=== PATIENT | female | born 1985 | race Caucasian/White ===

== ENCOUNTER 2022-10-05 16:38 | Outpatient (REF) | payer OTHER, SELFPAY ==
[2022-10-05 17:39] LABS: Influenza A PCR NEGATIVE (Negative); Influenza B PCR NEGATIVE (Negative); Resp Syncy Virus RNA Qual PCR NEGATIVE (Negative); SARS COV2 PCR INHOUSE NEGATIVE (Negative)
== END 2022-10-05 16:39 | disposition home or self-care (01) ==
LOC: HO.LNP 16:38
PROVIDERS: Visit Provider Nurse Practitioner Family
DX: Z20.822 Contact with and (suspected) exposure to COVID-19 (principal); R09.89 Other specified symptoms and signs involving the circulatory and respiratory systems
CPT/HCPCS: 0241U

== ENCOUNTER 2022-10-22 12:04 | Outpatient (REF) | payer OTHER, SELFPAY ==
--- NOTE | ~2022-10-22 | XR_ITS ---
EXAMINATION: XR LUMBOSACRAL SPINE CLINICAL INFORMATION: Lumbago with right sciatica. COMPARISON: None TECHNIQUE: Three views of the lumbosacral spine. FINDINGS: The vertebral bodies and posterior elements are unremarkable. The disc spaces appear preserved, and the vertebral alignment is normal. The paraspinal soft tissues appear normal. XR/XR lumbar spine 2-3V IMPRESSION: Unremarkable examination.
== END 2022-10-22 12:05 | disposition home or self-care (01) ==
LOC: HO.XRAY 12:04
PROVIDERS: PCP Internal Medicine; Visit Provider Nurse Practitioner Family
DX: M54.41 Lumbago with sciatica, right side (principal)
CPT/HCPCS: 72100

== ENCOUNTER 2023-07-21 09:19 | Outpatient (REF) | payer OTHER, SELFPAY ==
[2023-07-21 09:36] LABS: MANUAL DIFF FLAG NO
[2023-07-21 10:06] LABS: Basophils Percent Auto 0.6 % (0-2); Eosinophils Absolute Auto 0.2 X10*3/uL (0.0-0.4); Eosinophils Percent Auto 3.3 % (0-4); Hematocrit 40.8 % (37.0-47.0); Hemoglobin 12.9 g/dl (12.0-16.0); Imm Gran Abs Auto 0.01 X10*3/uL (0.00-0.03); Imm Gran Pct Auto 0.2 % (0.0-0.4); Lymphocytes Absolute Auto 1.9 X10*3/uL (1.2-4.9); Lymphocytes Percent Auto 38.7 % (20-40); Mean Corpuscular HGB Conc 31.6 g/dl (31.0-35.0); Mean Corpuscular Hemoglobin 25.4 pg (27.0-33.0); Mean Corpuscular Volume 80.3 fL (80.0-98.0); Mean Platelet Volume 10.1 fL (9.4-12.3); Monocytes Absolute Auto 0.4 X10*3/uL (0.1-1.2); Monocytes Percent Auto 8.2 % (2-11); Neutrophils Absolute Auto 2.4 x10*3/uL (2.0-8.3); Platelet Count 267 X10*3/uL (160-400); Red Blood Count 5.08 X10*6/uL (4.20-5.50); Red Cell Distribution Width 14.2 % (11.0-16.0); White Blood Count 4.9 X10*3/uL (4.8-10.8)
[2023-07-21 10:39] LABS: Alanine Aminotransferase 15 U/L (0-31); Albumin Level 4.1 g/dL (3.5-5.0); Alkaline Phosphatase 63 U/L (39-117); Anion Gap 12 (12-20); Aspartate Amino Transferase 15 U/L (5-31); Bilirubin Total 0.4 mg/dL (0.0-1.0); Blood Urea Nitrogen 14 mg/dL (9-16); Calcium 9.1 mg/dL (8.4-10.2); Carbon Dioxide 26 mmol/L (22-29); Chloride 105 mmol/L (96-108); Cholesterol 175 mg/dL (<200); Estimated Glomerular Filt Rate > 60; Glucose Random 83 mg/dL (60-115); HDL Cholesterol 45 mg/dL (>40); LDL Cholesterol Calculated 115 mg/dL (<100); Potassium 3.8 mmol/L (3.3-5.1); Sodium 139 mmol/L (135-145); Total Protein 7.7 g/dL (6.5-8.0); Triglycerides 77 mg/dL (<150)
[2023-07-21 10:55] LABS: Thyroid Stimulating Hormone 0.89 uIU/mL (0.32-4.0); Vitamin D 25-OH Total 48.3 ng/mL (>30)
[2023-07-21 11:12] LABS: Folate 10.9 ng/mL (> or = 4.0); Vitamin B12 871 pg/mL (200-900)
[2023-07-23 21:24] LABS: TS Negative Control Passed; TS Panel A 0; TS Panel B 0; TS Positive Control Passed; TSpotTB Negative (Negative)
== END 2023-07-21 09:20 | disposition home or self-care (01) ==
LOC: HO.LAB 09:19
PROVIDERS: PCP Internal Medicine; Visit Provider Internal Medicine
DX: Z00.00 Encounter for general adult medical examination without abnormal findings (principal); E66.3 Overweight; E78.00 Pure hypercholesterolemia, unspecified; Z11.1 Encounter for screening for respiratory tuberculosis
CPT/HCPCS: 36415; 80053; 80061; 82306; 82607; 82746; 84439; 84443; 85025; 86481

== ENCOUNTER 2023-07-26 07:54 | Outpatient (AMB) | payer OTHER, SELFPAY ==
--- NOTE | 2023-07-26 08:20 | AM.OFFVISNUR ---
Intake Intake Visit Reasons: tetanus and flu vaccines Allergies crab Adverse Reaction (Intermediate, Uncoded 01/27/23 16:43) throat irritation Office Procedures Flu Questionnaire Does the patient have a severe egg allergy?: No Does the patient have severe life threatening allergies?: No Does the patient have a fever or illness today?: No Has the patient ever had Guillain-[place] Syndrome?: No Has the patient ever had any past reaction to a flu shot?: No Immunizations flu vacc [id number] 6mos up(PF) 60 mcg(15 mcgx4)/0.5 mL IM syringe Performing Provider: Ari Singh MD Performing Location: [facility] Administered by: Altagracia Hernandez RN on 07/26/23 08:20 Dose Route Admin Location Dispensed Lot Number Expiration Date [employer] 0.5 mL IM Right Deltoid 0.5 mL [id number] 03/11/24 42515-368-01 [employer]LAXOSMITHK[employer] VIS Given Date VIS Provided VIS Publication Date 07/26/23 Single Vaccine 21 Eligibility Eligibility Date Funding Source Not VFC Eligible 07/26/23 Private Boostrix Tdap 2.5 Lf unit-8 mcg-5 Lf/0.5 mL intramuscular syringe Performing Provider: Ari Singh MD Performing Location: [facility] Administered by: Altagracia Hernandez RN on 07/26/23 08:20 Dose Route Admin Location Dispensed Lot Number Expiration Date [employer] Operator 0.5 mL IM Left Deltoid 0.5 mL [id number] 08/17/25 46175-830-70 [employer]LAXOSMITHK[employer] VIS Given Date VIS Provided VIS Publication Date 07/26/23 Single Vaccine 21 Eligibility Eligibility Date Funding Source Not VFC Eligible 07/26/23 Private Coding Assessment & Plan Assessment & Plan Orders: Orders TDaP Immunization Today Z23 - Encounter for immunization Influenza [id number] Immunization Today Z23 - Encounter for immunization
== END 2023-07-26 08:26 | disposition home or self-care (01) ==
PROVIDERS: PCP Internal Medicine; Visit Provider Internal Medicine
DX: Z23 Encounter for immunization (principal)
CPT/HCPCS: 90471; 90472; 90686; 90715

== ENCOUNTER 2023-12-12 15:41 | Outpatient (AMB) | payer OTHER, SELFPAY ==
[2023-12-12 15:45] VITALS: BP 110/64; PULSE 89; TEMP 37.2; O2SAT 98
--- NOTE | 2023-12-12 15:45 | MHC.OFFWIV ---
Intake Vital Signs 12/12/23 15:45 Height 5 ft 2 in BP 110/64 Blood Pressure Location Lt brachial Position Sitting Pulse 89 Pulse Source Pulse Oximeter Temp 98.9 F Temp Source Oral Pulse Oximetry (%) 98 Oxygen Delivery Method Room Air Intake Visit Reasons: EP sore throat ear/headache Intake Note: pt is here for sore throat and ear pain with headache Patient Tobacco Use Status: Never used Tobacco Allergies crab Adverse Reaction (Intermediate, Uncoded 12/12/23 15:45) throat irritation Do you need a note to return to daycare/school/sports/work: No HPI HPI Comments History of Present Illness Details 38 y/o female patient who presents to walk in clinic with c/o headaches, sore-throat, fevers and body aches since yesterday. Son tested positive for COVID-19 Infection this morning. [facility] Medical History (Updated 01/27/23 @ 16:44 by Ari Singh MD) Right-sided low back pain with sciatica Surgical History History of tubal ligation Family History (Updated 01/27/23 @ 16:01 by Theresa Anderson CMA) Father No problems noted. Mother Hypertension Diabetes Maternal Grandmother Diabetes Hypertension Social History Housing: Apartment Alcohol intake: never Patient Tobacco Use Status: Never used Tobacco e-Cigarette/Vaping Use: Never Used Second Hand Smoke Exposure: No service: No Current occupational status: employed Current occupational exposures/hazards: No Cognitive needs: No Hearing needs: No Vision needs: Yes Review of Systems Const All systems reviewed & are unremarkable except as noted in HPI and below Physical Exam Vital Signs: Last Vital Signs Temp 98.9 F 12/12/23 15:45 Pulse 89 12/12/23 15:45 BP 110/64 12/12/23 15:45 Pulse Ox 98 12/12/23 15:45 Oxygen Delivery Method Room Air 12/12/23 15:45 Const General: comfortable and no acute distress Orientation/consciousness: patient oriented x3 HEENT Head: Yes normocephalic Ears: external ears normal, TM's normal bilaterally and TM abnormal with fluid behind the TM bilateral General nose exam: Abnormal mucous membranes and turbinates present boggy and erythematous Mouth: moist mucous membranes Throat: Yes posterior oropharynx normal Neuro General: patient oriented x3 and gait normal Psych Speech and movement: Normal speech and movement present Assessment & Plan Assessment & Plan (1) COVID-19: Code(s): U07.1 - COVID-19 Plan: - Rest and hydrate well with warm fluids - Acetaminophen for pain relief. - Paxlovid Medications: New nirmatrelvir-ritonavir 300 mg (150 mg x 2)-100 mg (Paxlovid) take TWO 150 mg tablets of nirmatrelvir with ONE 100 mg tablet of ritonavir twice daily for 5 days PO 30 ea 0RF COVID INFECTION U07.1 - COVID-19 acetaminophen 1,000 mg (2 x 500 mg) PO Q6H PRN 30 caps 0RF pain, moderate U07.1 - COVID-19 Coding Level of Care Code Est Pt Level 3 (01840) Diagnoses COVID-19 U07.1 Time Spent (min) 15
== END 2023-12-12 16:44 | disposition home or self-care (01) ==
PROVIDERS: PCP Internal Medicine; Visit Provider Nurse Practitioner Family
DX: U07.1 COVID-19 (principal)
CPT/HCPCS: 99213

== ENCOUNTER 2024-04-02 09:27 | Outpatient (AMB) | payer OTHER, MEDICAID, SELFPAY ==
--- NOTE | 2024-04-02 10:17 | MHC.OFFWIV ---
Intake Vital Signs 04/02/24 10:18 Height 5 ft 2 in Weight 150 lb BMI 27.4 BP 110/70 Blood Pressure Location Lt brachial Position Sitting Pulse 66 Pulse Source Pulse Oximeter Temp 98.3 F Temp Source Oral Pulse Oximetry (%) 99 Oxygen Delivery Method Room Air Intake Visit Reasons: EP headache, ? High BP, dizzy Intake Note: pt here c/o headache and dizziness, ? Elevated BP. Started 3 days ago Patient Tobacco Use Status: Never used Tobacco Allergies crab Adverse Reaction (Intermediate, Uncoded 04/02/24 10:17) throat irritation Do you need a note to return to daycare/school/sports/work: No HPI EP headache, ? High BP, dizzy HPI Details This note is constructed using voice recognition software. While every effort has been made to ensure accuracy, property claims adjuster errors may have been included. The patient is a 38 year old female who presents to the clinic today with headache and dizziness with concern for elevated BP. She notes that on Tuesday she started with a unilateral right-sided headache, and then developed a mild dizziness. She was seen in the emergency room, which noted her to have a blood pressure 160 systolically and advised her to follow up with PCP should this recur again. Additionally they did an EKG and told her that the results were normal. Her workup ended with no additional treatment plan, and she was advised to monitor for symptoms returned. She notes that though the headache portion has nearly resolved she continues to have tenderness along the scalp on the right side of her head, without any new symptoms. She continues to have the mild amount of dizziness, and this does seem to be worse if she is moving around and walking around. She does not have light sensitivity but has some mild sound sensitivity. She denies confusion, difficulty speaking or walking. [facility] Medical History (Updated 01/27/23 @ 16:44 by Ari Singh MD) Right-sided low back pain with sciatica Surgical History History of tubal ligation Family History (Updated 01/27/23 @ 16:01 by Theresa Anderson CMA) Father No problems noted. Mother Hypertension Diabetes Maternal Grandmother Diabetes Hypertension Social History Housing: Apartment Alcohol intake: never Patient Tobacco Use Status: Never used Tobacco e-Cigarette/Vaping Use: Never Used Second Hand Smoke Exposure: No service: No Current occupational status: employed Current occupational exposures/hazards: No Cognitive needs: No Hearing needs: No Vision needs: Yes Review of Systems Const All systems reviewed & are unremarkable except as noted in HPI and below Physical Exam Vital Signs: Last Vital Signs Temp 98.3 F 04/02/24 10:18 Pulse 66 04/02/24 10:18 BP 110/70 04/02/24 10:18 Pulse Ox 99 04/02/24 10:18 Oxygen Delivery Method Room Air 04/02/24 10:18 BMI result Body Mass Index 27.4 Const General: cooperative, healthy appearing, comfortable, no acute distress and alert Orientation/consciousness: patient oriented x3 Limitations: no limitations HEENT Head: Yes normal to inspection and Yes normocephalic Ears: hearing grossly normal bilaterally General nose exam: Normal external nose present Face and sinus: Yes normal facial exam and Yes sinuses nontender Mouth: Normal oral and palatal mucosa present and tongue normal Teeth and gingiva: dentition normal Throat: Yes posterior oropharynx normal Eyes General: appearance normal, both eyes and all related structures Neck Neck: Yes normal visual inspection, Yes full ROM and Yes no lymphadenopathy Resp Effort & Inspection: normal respiratory effort and able to speak in complete sentences Auscultation: clear to auscultation bilaterally Cardio Jugular venous distension: no JVD Palpation: normal PMI Rate: regular rate Heart sounds: S1 normal heart sound present, S2 normal heart sound present, no click, no gallops, no murmurs and no rubs Skin General skin exam: no rashes or lesions noted, elasticity normal and turgor normal Neuro General: patient oriented x3 Cranial nerves: Yes CN's II-XII intact bilaterally and Yes Facial sensation intact/muscles of mastication intact Extrem General: Yes normal to inspection, Yes full ROM, Yes capillary refill normal and Yes normal exam except as noted Psych Appearance: grossly normal Mental Status: mental status grossly normal Speech and movement: Normal speech and movement present Affect: normal affect Assessment & Plan Assessment & Plan (1) Migraine headache without aura: Code(s): G43.009 - Migraine without aura, not intractable, without status migrainosus Qualifiers: Status migrainosus presence: with status migrainosus Intractability: not intractable Qualified Code(s): G43.001 - Migraine without aura, not intractable, with status migrainosus Plan: History and physical exam consistent with likely migraine status given prolonged, greater than 4 hours, unilateral symptoms and phonophobia. Advised [id number] at-home treatment methods, including home measures such as dark room, resting. Ice pack. We will try a short prednisone burst to help reduce symptoms with anti-inflammatory effect. Advised patient to start headache journal, and follow up with PCP with these results. Given that she is absent of any red flag symptoms, at home treatment appropriate for this patient. Reviewed symptoms that would involve need for emergent treatment such as sudden worsened headache of her life, confusion, and resolving nausea or vomiting. Plan See above for full details and plan. She did not have elevated blood pressure in office today, advised patient to obtain blood pressure cuff for at home monitoring, which could be helpful to determine if there are any particular patterns associated with this. Advised low-sodium diet to help with any potential contribution to elevated emergency room readings. Medications: New prednisone 40 mg (2 x 20 mg) PO DAILY 3 days 6 tabs 0RF Coding Level of Care Code Est Pt Level 4 (42150) Diagnoses Migraine without aura and with status migrainosus, not intractable G43.001 Status migrainosus presence: with status migrainosus Intractability: not intractable
[2024-04-02 10:18] VITALS: BP 110/70; PULSE 66; TEMP 36.8; O2SAT 99; BMI 27.4
== END 2024-04-02 11:07 | disposition home or self-care (01) ==
PROVIDERS: PCP Internal Medicine; Visit Provider Registered Nurse
DX: G43.001 Migraine without aura, not intractable, with status migrainosus (principal)
CPT/HCPCS: 99214

== ENCOUNTER 2024-04-11 13:59 | Outpatient (AMB) | payer OTHER, SELFPAY ==
[2024-04-11 14:02] VITALS: BP 108/70; PULSE 68; O2SAT 99; BMI 28.0
--- NOTE | 2024-04-11 14:02 | A.OFFPC_ITS ---
Vital Signs 04/11/24 14:02 Height 5 ft 2 in Weight 153 lb 0.2 oz BMI 28.0 BP 108/70 Blood Pressure Location Lt brachial Position Sitting Pulse 68 Pulse Source Pulse Oximeter Pulse Oximetry (%) 99 Oxygen Delivery Method Room Air Intake Visit Reasons: Kendrick Guerreir 03/30 Hypertension, headaches Intake Note: Patient is here to follow-up after a visit the emergency department at [facility] on 03/30/2024 Personnel Clerks Supervisor Required: No Allergies crab Adverse Reaction (Intermediate, Uncoded 04/11/24 14:03) throat irritation Medication List - Last Reconciled 04/11/24 by Katherin Arias PA-C acetaminophen 1,000 mg (2 x 500 mg) PO Q6H PRN cholecalciferol (vitamin D3) 25 mcg PO DAILY cyanocobalamin (vitamin B-12) (Vitamin B-12) 1 mL PO DAILY epinephrine (EpiPen) 0.3 mg (0.3 mL) IM Q4H PRN Tobacco use date assessed: 04/11/24 Dental Screening Dental Screen Date: 04/11/24 HPI Kendrick Guerrier 03/30 Hypertension, headaches HPI Details 38-year-old female with no relevant past medical history last seen by Dr. Singh 01/2023 coming in for hospital follow up.? In review of the notes, patient was seen at [facility] walk-in clinic 04/02/2024 for dizziness and elevated blood pressure.? Patient was diagnosed with migraine treated with prednisone. Seen in [facility] 04/04/2024 with elevated BP with systolic in the 60s and headache with dizziness. EKG was normal. Patient states for the last 2 weeks she has been having daily migraines with nausea, dizziness, light sensitivity and sensitivity to loud noises. She has tried Tylenol and prednisone with no relief. She has no history of migraines in the past. She states the headaches typically last anywhere between 4-6 hours before subsiding. She can not identify any triggers. [facility] Medical History Right-sided low back pain with sciatica Surgical History History of tubal ligation Family History Father No problems noted. Mother Hypertension Diabetes Maternal Grandmother Diabetes Hypertension Social History Housing: Apartment Alcohol intake: never Patient Tobacco Use Status: Never used Tobacco e-Cigarette/Vaping Use: Never Used Second Hand Smoke Exposure: No service: No Current occupational status: employed Current occupational exposures/hazards: No Cognitive needs: No Hearing needs: No Vision needs: Yes Questionnaire Thrive Questionnaire Date Thrive assessed: 12/10/22 AUDIT C Alcohol Use Questionnaire (AUDIT-C) 1. How often do you have a drink containing alcohol?: Never 3. How often do you have six or more drinks on one occasion?: Never Total Score: 0 ABDI-7 AMB Questionnaire ABDI-7 Date ABDI - 7 assessed: 10/22/22 Source: Developed by Drs. Dann Wagner, Diane Mahan, Nikko Wilson and colleagues, with an educational dagmar from [employer]. Review of Systems Const Denies body aches, Denies chills, Denies fever(s), Reports headache(s) and Denies poor appetite Eyes Details: No visual changes however sensitivity to light ENT Details: Phonophobia Denies dysphagia, Denies dizziness and Reports headache(s) Card Denies chest pain, Denies syncope, Denies edema, Denies irregular heart rhythm, Reports lightheadedness and Denies dyspnea Resp Denies cough and Denies dyspnea GI Denies abdominal pain, Denies dysphagia and Reports nausea Reports no additional complaints Musc Details: Chronic low back pain Denies abnormal gait Skin/Breast Reports system reviewed and no additional complaints, except as documented Neuro Denies abnormal gait, Denies dizziness, Denies syncope and Reports headache(s) Psych Reports no additional complaints Physical exam (Primary Care) Vital Signs: Last Vital Signs Pulse 68 04/11/24 14:02 BP 108/70 04/11/24 14:02 Pulse Ox 99 04/11/24 14:02 Oxygen Delivery Method Room Air 04/11/24 14:02 BMI result Body Mass Index 28.0 Tobacco/Smoking Status: Tobacco use Status Tobacco use date assessed 04/11/24 04/11/24 14:04 Patient Tobacco Use Status Never used Tobacco 04/11/24 14:04 e-Cigarette/Vaping Use Never Used 04/11/24 14:04 Thrive Assessment: Date of Thrive Assessment Date Thrive assessed 12/10/22 04/11/24 14:04 Const General: cooperative, healthy appearing, comfortable and no acute distress Orientation/consciousness: patient oriented x3 HENMT Head: Yes normocephalic Ears: hearing grossly normal bilaterally General nose exam: Normal external nose present Eyes General: appearance normal, both eyes and all related structures Conjunctivae: conjunctivae normal Pupils: Equal, round and reactive pupils present Neck Neck: Yes full ROM and Yes no lymphadenopathy Resp Effort & Inspection: normal respiratory effort Auscultation: clear to auscultation bilaterally, no crackles, no rales, no rhonchi and no wheezes Cardio Rate: regular rate Rhythm: regular rhythm Skin General skin exam: no rashes or lesions noted Neuro General: patient oriented x3 Cranial nerves: Yes Equal, round and reactive pupils present, Yes Bilaterally intact EOM present, Yes Normal facial strength present and Yes Ability to bilaterally elevate shoulders present Gait exam (Neuro): Normal gait present Extrem General: Yes normal to inspection, Yes full ROM and No edema Psych Affect: normal affect Attitude: cooperative Insight: Good insight present (Psych) Judgement: Good judgement present (Psych) Assessment and Plan Assessment & Plan (1) Migraine: Code(s): G43.909 - Migraine, unspecified, not intractable, without status migrainosus Plan: Patient has no previous history of migraines and has been having 2 weeks of daily unilateral headaches with nausea, light sensitivity, lightheadedness, and sensitivity to sound. Her blood pressure was found to be elevated at [facility] however her blood pressures have been consistently low normal in the clinic. Recommended taking blood pressure at home daily with [id number] blood pressure cuff. We will trial Excedrin as patient has not tried this yet if this does not improve we can consider adding sumatriptan. Antiemetic offered and declined at this visit. Referral to neurology placed at patient request. Follow up in 1 month. Plan This note was constructed using voice recognition software. While every effort has been made to ensure accuracy and operations specialists, still areas may have been included sometimes these areas may affect the content or meeting of the given symptoms. Total time spent caring for the patient today was 35 minutes. This includes time spent before the visit reviewing the chart, time spent during the visit, and time spent after the visit and documentation. Orders: Referrals Neurology Referral G43.909 - Migraine, unspecified, not intractable, without status migrainosus Medications: New ryzyruo-qxqedmuaxduha-ejpoelod 250-250-65 mg (Excedrin Extra Strength) 1 tab PO Q4-6H PRN 20 tabs 0RF pain Coding Level of Care Code Est Pt Level 4 (50747) Diagnoses Migraine G43.909
== END 2024-04-11 14:31 | disposition home or self-care (01) ==
PROVIDERS: PCP Internal Medicine
DX: G43.909 Migraine, unspecified, not intractable, without status migrainosus (principal)
CPT/HCPCS: 99214

== ENCOUNTER 2024-06-19 11:01 | Outpatient (AMB) | payer OTHER, SELFPAY ==
--- NOTE | 2024-06-19 11:18 | A.OFFPC_ITS ---
Vital Signs 06/19/24 11:19 Height 5 ft 2 in Weight 156 lb BMI 28.5 BP 110/60 Blood Pressure Location Lt brachial Position Sitting Pulse 74 Pulse Source Pulse Oximeter Pulse Oximetry (%) 96 Oxygen Delivery Method Room Air Intake Visit Reasons: Annual PE Intake Note: Patient is here today for a physical. 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 Driver: Not Required per policy Accompanied by: Self / Same As Patient Allergies crab Adverse Reaction (Intermediate, Uncoded 06/19/24 11:19) throat irritation Medication List - Last Reconciled 06/19/24 by Ari Singh MD acetaminophen 1,000 mg (2 x 500 mg) PO Q6H PRN dxcjtsu-weiijurwelxvr-znirwqvx 250-250-65 mg (Excedrin Extra Strength) 1 tab PO Q4-6H PRN cholecalciferol (vitamin D3) 25 mcg PO DAILY epinephrine (EpiPen) 0.3 mg (0.3 mL) IM Q4H PRN pyridoxine (vitamin B6) 10 mg PO DAILY Tobacco use date assessed: 06/19/24 Dental Screening Dental Screen Date: 04/11/24 HPI Annual PE HPI Details 38-year-old overweight female coming in for physical exam history of migraine PFSH Medical History (Updated 06/19/24 @ 11:54 by Ari Singh MD) Right-sided low back pain with sciatica Headache Surgical History History of tubal ligation Family History Father No problems noted. Mother Hypertension Diabetes Maternal Grandmother Diabetes Hypertension Social History Housing: Apartment Alcohol intake: never Patient Tobacco Use Status: Never used Tobacco e-Cigarette/Vaping Use: Never Used Second Hand Smoke Exposure: No service: No Current occupational status: employed Current occupational exposures/hazards: No Cognitive needs: No Hearing needs: No Vision needs: Yes Questionnaire PHQ-9 Over the last 2 weeks, how often have you been bothered by any of the following problems? 1. Little interest or pleasure in doing things: not at all 2. Feeling down, depressed, or hopeless: not at all 3. Trouble falling or staying asleep, or sleeping too much: not at all 4. Feeling tired or having little energy: not at all 5. Poor appetite or overeating: not at all 6. Feeling bad about yourself - or that you are a failure or have let yourself or your family down: not at all 7. Trouble concentrating on things, such as reading the newspaper or watching television: not at all 8. Moving or speaking so slowly that other people could have noticed. Or the opposite - being so fidgety or restless that you have been moving around a lot more than usual: not at all 9. Thoughts that you would be better off or of hurting yourself in some way: not at all Total score: 0 Depression Screening Interpretation: Negative Depression Screening Done: Yes Source: Developed by Drs. Dann Wagner, Diane Mahan, Nikko Wilson and colleagues, with an educational dagmar from [employer]. Thrive Questionnaire Date Thrive assessed: 06/19/24 I am a: Patient What is your living situation today?: I have a steady place to live Within the past 12 months, did the food you bought not last and you didn't have the money to get more?: Never true Within the past 12 months, did you worry whether your food would run out before you got money to buy more?: Never true Do you have trouble paying for medicines?: No Do you have trouble getting transportation to medical appointments?: No Do you have trouble paying your heating and electricity bill?: No Do you have trouble taking care of your child, family member or friend?: No Do you have trouble with day-to-day activities such as bathing, preparing meals, shopping, managing finances, etc.?: No Are you currently unemployed and looking for a job?: No Are you interested in more education?: Yes Please select the resources that you would like help with: Job search/training Currently or been in a relationship where the following occur: No concerns reported THRIVE Score: 0 AUDIT C Alcohol Use Questionnaire (AUDIT-C) 1. How often do you have a drink containing alcohol?: Never Total Score: 0 ABDI-7 AMB Questionnaire ABDI-7 Date ABDI - 7 assessed: 06/19/24 Feeling nervous, anxious, or on edge: 0 = Not at all Not being able to stop or control worryin = Not at all Worrying too much about different things: 0 = Not at all Trouble relaxin = Not at all Being so restless that it is hard to sit still: 0 = Not at all Becoming easily annoyed or irritable: 0 = Not at all Feeling afraid as if something awful might happen: 0 = Not at all Total ABDI-7 score (0-4 normal; 5-9 mild; 10-14 moderate; 15-21 severe): 0 Source: Developed by Drs. Dann Wagner, Diane Mahan, Nikko Wilson and colleagues, with an educational dagmar from [employer]. Review of Systems Const Denies poor appetite and Denies weakness Eyes Denies no additional complaints ENT Reports Normal hearing present, Denies dizziness, Denies nasal congestion, Denies tinnitus and Denies sore throat Card Denies chest pain, Denies syncope, Denies rapid heart rate and Denies dyspnea Resp Denies cough and Denies dyspnea GI Denies change in stool character, Reports constipation, Denies diarrhea, Denies nausea and Denies vomiting Denies urinary frequency, Denies difficulty voiding and Denies dysuria Neuro Reports Normal hearing present, Denies confusion, Denies dizziness, Denies syncope and Denies weakness Psych Denies confusion Physical exam (Primary Care) Vital Signs: Last Vital Signs Pulse 74 06/19/24 11:19 BP 110/60 06/19/24 11:19 Pulse Ox 96 06/19/24 11:19 Oxygen Delivery Method Room Air 06/19/24 11:19 BMI result Body Mass Index 28.5 Tobacco/Smoking Status: Tobacco use Status Tobacco use date assessed 06/19/24 06/19/24 11:23 Patient Tobacco Use Status Never used Tobacco 06/19/24 11:23 e-Cigarette/Vaping Use Never Used 06/19/24 11:23 PHQ-9: PHQ-9 Score PHQ-9: Total score 0 06/19/24 11:23 Depression Screening Interpretation: Negative Thrive Assessment: Date of Thrive Assessment Date Thrive assessed 06/19/24 06/19/24 11:23 Currently or been in a relationship where the following occur: No concerns reported Const General: No confusion Orientation/consciousness: No confusion HENMT Head: Yes normocephalic Ears: external ears normal and TM's normal bilaterally Face and sinus: Yes normal facial exam Mouth: moist mucous membranes Throat: Yes tonsils normal Eyes Conjunctivae: conjunctivae normal Pupils: Equal, round and reactive pupils present and Pupil accommodation reflex normal Direct Ophthalmoscopy: normal light reflex Neck Neck: No lymphadenopathy Thyroid: Thyroid normal Chest Chest palpation & inspection: normal inspection of the chest Resp Effort & Inspection: normal respiratory effort and no audible wheezes Auscultation: clear to auscultation bilaterally, no crackles, no wheezes and lung sounds not diminished Cardio Rate: regular rate Rhythm: regular rhythm Peripheral pulses: radial pulses present and dorsalis pedis present GI Palpation (GI): no masses Auscultation: normal bowel sounds and normoactive bowel sounds Rectal Exam - Female: deferred Skin General skin exam: no rashes or lesions noted Rashes: no rashes Neuro General: No confusion Cranial nerves: Yes Equal, round and reactive pupils present and Yes Normal hearing present Cognition (Neuro): normal cognition Gait exam (Neuro): Normal gait present Motor exam (neuro): 5/5 motor strength present throughout Deep tendon reflexes (DTR's): Right brachioradialis reflex intensity grade: 2+, Left brachioradialis reflex intensity grade: 2+, Right patellar reflex intensity grade: 2+ and Left patellar reflex intensity grade: 2+ Extrem General: No edema Coding Level of Care Code Est Pt Prev Care 40-64y(85279) Diagnoses Annual physical exam Z00.00 Migraine G43.909 Overweight (BMI 25.0-29.9) E66.3 Breast cancer screening by mammogram Assessment & Plan Assessment & Plan (1) Annual physical exam: Code(s): Z00.00 - Encounter for general adult medical examination without abnormal findings Category: Medical Plan: Patient is advised to eat healthy, keep well hydrated, keep active and have adequate sleep. (2) Migraine: Code(s): G43.909 - Migraine, unspecified, not intractable, without status migrainosus Category: Medical Plan: Keep well hydrated have enough sleep. (3) Overweight (BMI 25.0-29.9): Code(s): E66.3 - Overweight Category: Medical Plan: Diet and exercise (4) Breast cancer screening by mammogram: Code(s): Z12. - Encounter for screening mammogram for malignant neoplasm of breast Category: Medical Plan: Patient is reminded about mammogram Orders: Orders MM tomosynthesis screening BI Today Z12.31 - Encounter for screening mammogram for malignant neoplasm of breast
[2024-06-19 11:19] VITALS: BP 110/60; PULSE 74; O2SAT 96; BMI 28.5
== END 2024-06-19 12:02 | disposition home or self-care (01) ==
PROVIDERS: PCP Internal Medicine; Visit Provider Internal Medicine
DX: Z00.00 Encounter for general adult medical examination without abnormal findings (principal); G43.909 Migraine, unspecified, not intractable, without status migrainosus; E66.3 Overweight; Z12.31 Encounter for screening mammogram for malignant neoplasm of breast

== ENCOUNTER → 2024-06-19 11:01 | Outpatient (BNVA) | payer OTHER, SELFPAY | PROVIDERS: PCP Internal Medicine; Visit Provider Internal Medicine | DX: Z00.01 Encounter for general adult medical examination with abnormal findings (principal); G43.909 Migraine, unspecified, not intractable, without status migrainosus; E66.3 Overweight; Z68.28 Body mass index [BMI] 28.0-28.9, adult; Z71.3 Dietary counseling and surveillance | CPT/HCPCS: 96127; 99396 ==

== ENCOUNTER 2024-08-25 08:59 | Outpatient (REF) | payer OTHER, SELFPAY | END 2024-08-25 09:00 | disposition home or self-care (01) | LOC: HO.MAMMO 08:59 | PROVIDERS: PCP Internal Medicine; Visit Provider Internal Medicine | DX: Z12.31 Encounter for screening mammogram for malignant neoplasm of breast (principal) | CPT/HCPCS: 77063; 77067 ==

== ENCOUNTER → 2024-08-25 09:15 | Outpatient (BNV) | payer OTHER, SELFPAY | PROVIDERS: PCP Internal Medicine; Visit Provider Internal Medicine | DX: Z12.31 Encounter for screening mammogram for malignant neoplasm of breast (principal) | CPT/HCPCS: 77063; 77067 ==

== ENCOUNTER 2025-04-10 12:44 | Outpatient (AMB) | payer OTHER, SELFPAY ==
--- OUTSIDE RECORDS SUMMARY | 2025-04-10 13:16 | XMS_ITS | Clinical Summary ---
Author Organization [facility] Address [address] [address] Phone Care Team Providers Care Wire Repairer Name Role Phone Pcp, Unknown Primary Care Provider Unavailabl e Immunizations Immunization Administration Dates Next Due COVID-19 (Pre-07/04) Pfizer Vaccine, mRNA, PF 09/22/2021,11/16/2020,10/26/2020 Hepatitis B Adult 04/22/2003,06/09/1999,05/27/19 97 Influenza, Unspecified Formulation 07/26/2023, MMR 06/02/1990,03/01/1985 Tdap 07/26/2023,02/20/2004 Social History Tobacco Use Types Packs/Day Years Used Date Smoking Tobacco: Never Assessed Education Answer Date Recorded Are you interested in more education? Not on wesley e 03/31/2024 Are you concerned about learning? Not on file 03/31/2024 No 03/31/2024 No 03/31/2024 Digital Access Answer Date Recorded No 03/31/2024 No 03/31/2024 Reliable internet access at home? Not on file 03/31/2024 Device with a working camera? Not on file Comments Unknown Sex and Gender Information Value Date Recorded Sex Assigned at Not on file Legal Sex Female 9:44 AM EST Gender Identity Not on file Sexual Orientation Not on file Plan of Treatment Health Maintenance Due Date Last Done Comments DEPRESSION SCREENING 1995 SMOKING Hx and SMOKELESS TOBACCO SCREENING 1996 HEPATITIS C SCREENING 2001 HIV ONE-TIME SCREENING (18-6 5 YEARS) 2001 PAP SMEAR 2004 MAMMOGRAM 2023 COVID-19 VACCINE (2023-2 5 season) 2024 09/22/2021, 11/16/2020, 10/26/2020 Adult Td,Tdap Booster 07/26/2033 07/26/2023 , 02/20/2004 HEPATITIS A VACCINES Aged Out No long er eligible based on patient's age to complete this topic HIB VACCINES Aged Out No longer eligi ble based on patient's age to complete this topic MENINGOCOCCAL VACCINES (ACWY) Aged Out No longer eligible based on patient's age to complete this topic MENINGOCOCCAL VACCINES (B) Aged Out N o longer eligible based on patient's age to complete this topic PNEUMOCOCCAL VACCINES (0-49 years) Aged Out No longer eligible b ased on patient's age to complete this topic Medical Devices Not on file Insurance [facility] EMPL[employer]YEES [employer] [facility] [employer] [employer] [employer] [place] [employer] Care Teams Wire Repairer Relationship Specialty Start Date End Date Pcp, Unknown PCP - General 03/30/24 Additional Source Comments The information contained in this document represents components of the legal health record. It is not the complete legal health record.[facility]
[2025-04-10 13:35] VITALS: BP 108/76; PULSE 72; TEMP 36.9; O2SAT 98; BMI 29.4
--- NOTE | 2025-04-10 13:35 | AM.OFFWIN_ITS ---
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 Patient states this morning she was walking from the break room to the elevator when she felt tingling in the tips of her fingers bilaterally and her toes bilaterally. Patient states that she returned to the break room, drank some water and took a break for approximately 5 minutes; by then the tingling had resolved and has not yet recurred. Patient states this has never occurred before. She denies taking any new medications, supplements or herbal agents. Additionally, she denies having any lightheadedness, headaches, visual changes, neck pain or unsteadiness when ambulating. Patient ate breakfast before going to work today and states that she has stayed well hydrated in the current heat wave. Patient is requesting a work note for tomorrow. [facility] Medical History (Updated 04/10/25 @ 14:51 by Janna Plaza PA-C) Right-sided low back pain with sciatica Headache Surgical History History of tubal ligation Family History Father No problems noted. Mother Hypertension Diabetes Maternal Grandmother Diabetes Hypertension Social History Housing: Apartment Alcohol intake: never Patient Tobacco Use Status: Never used Tobacco e-Cigarette/Vaping Use: Never Used Second Hand Smoke Exposure: No Patient : No service: No Current occupational status: employed Current occupational exposures/hazards: No Cognitive needs: No Hearing needs: No Vision needs: Yes Female Reproductive History Menstrual Date of last menstrual period: 04/07/25 Review of Systems Const All systems reviewed & are unremarkable except as noted in HPI and below Reports no additional complaints, Denies chills, Denies daytime sleepiness, Denies fatigue and Denies fever(s) Eyes Reports no additional complaints and Denies change in vision ENT Reports no additional complaints Card Reports no additional complaints Resp Reports no additional complaints GI Reports no additional complaints Reports no additional complaints Musc Reports no additional complaints, Denies numbness and Reports tingling (fingers and toes; transient) Skin/Breast Reports system reviewed and no additional complaints, except as documented Neuro Reports Abnormal speech present, Denies numbness, Denies radicular pain and Reports tingling (fingers and toes; transient) Psych Reports no additional complaints, Denies anxiety and Denies difficulty concentrating Endo Reports no additional complaints and Denies fatigue Darin/Lymph Reports no additional complaints Aller/Immun Reports no additional complaints Physical Exam Vital Signs: Last Vital Signs Temp 98.4 F 04/10/25 13:35 Pulse 72 04/10/25 13:35 BP 108/76 04/10/25 13:35 Pulse Ox 98 04/10/25 13:35 Oxygen Delivery Method Room Air 04/10/25 13:35 BMI result Body Mass Index 29.4 Const General: cooperative, healthy appearing, comfortable, no acute distress, well developed, alert, awake and Physically active Nutritional Appearance: average body habitus Orientation/consciousness: patient oriented x3 Limitations: no limitations HEENT Head: Yes normal to inspection and Yes normocephalic Ears: hearing grossly normal bilaterally, external ears normal, TM's normal bilaterally and EAC's normal Eyes General: appearance normal, both eyes and all related structures Resp Effort & Inspection: normal respiratory effort, able to speak in complete sentences, no respiratory distress and not tachypneic Auscultation: clear to auscultation bilaterally Cardio Rate: regular rate Rhythm: regular rhythm Skin General skin exam: no rashes or lesions noted Neuro General: patient oriented x3 and CN's II-XI intact bilaterally Cognition (Neuro): normal cognition Speech: Abnormal speech present Gait exam (Neuro): Normal gait present Psych Appearance: grossly normal Mental Status: mental status grossly normal Thought process: Normal thought process present Insight: Good insight present (Psych) Judgement: Good judgement present (Psych) Assessment & Plan Assessment & Plan (1) Transient paresthesia: Comment: Patient is neurologically intact and vital signs are stable. Symptoms have not recurred. Patient is encouraged to follow up with her primary care provider for routine laboratories if her symptoms recur. Code(s): R20.2 - Paresthesia of skin Plan: Follow up with PCP if symptoms recur for routine laboratories. Coding Level of Care Code Est Pt Level 3 (77185) Diagnoses Transient paresthesia R20.2 Time Spent (min) 20
== END 2025-04-10 14:41 | disposition home or self-care (01) ==
PROVIDERS: PCP Internal Medicine; Visit Provider Physician Assistant
DX: R20.2 Paresthesia of skin (principal)

== ENCOUNTER → 2025-04-10 12:44 | Outpatient (BNVA) | payer OTHER, SELFPAY | PROVIDERS: PCP Internal Medicine; Visit Provider Physician Assistant | DX: R42 Dizziness and giddiness (principal); R20.2 Paresthesia of skin | CPT/HCPCS: 99212 ==

== ENCOUNTER 2025-04-18 08:03 | Outpatient (AMB) | payer OTHER, SELFPAY ==
--- OUTSIDE RECORDS SUMMARY | 2025-04-18 08:06 | XMS_ITS | Clinical Summary ---
Author Organization [facility] Address [address] [address] Phone Care Team Providers Care Skiing Teacher Name Role Phone Pcp, Unknown Primary Care [...] topic Medical Devices Not on file Insurance [facility] Address: [facility] [address] [place] [address] [facility] EM[employer]ES [facility] EMPLOYEES [facility]ILY [facility] Care Teams Skiing Teacher Relationship Specialty Start Date End Date Pcp, Unknown PCP - General 03/30/24 Additional Source Comments The information contained in this document represents components of the legal health record. It is not the complete legal health record.[facility]
--- NOTE | 2025-04-18 08:20 | MHC.PC.OV ---
Vital Signs 04/18/25 08:21 Height 5 ft 2 in Weight 157 lb 4 oz BMI 28.8 BP 120/64 Blood Pressure Location Lt brachial Position Sitting Pulse 69 Pulse Source Pulse Oximeter Temp 97.1 F Temp Source Temporal Artery Scan Pulse Oximetry (%) 99 Oxygen Delivery Method Room Air Intake Visit Reasons: tingling and burning sensation b/l hands and feet Intake Note: Patient is here to follow up on Tingling and burning sensation bilateral hands and feet. Media Theorist And Author Of Required: No Hvac Service Technician: Not Required per policy Accompanied by: Self / Same As Patient Allergies seafood Allergy (Intermediate, Verified 04/18/25 08:21) throat Medication List - Last Reconciled 04/18/25 by Katherin Arias PA-C acetaminophen 1,000 mg (2 x 500 mg) PO Q6H PRN [id number]-[id number] 250-250-65 mg (Excedrin Extra Strength) 1 tab PO Q4-6H PRN cholecalciferol (vitamin D3) 25 mcg PO DAILY cyanocobalamin (vitamin B-12) 1,000 mcg IM QMONTH epinephrine (EpiPen) 0.3 mg (0.3 mL) IM Q4H PRN pyridoxine (vitamin B6) 10 mg PO DAILY Tobacco use date assessed: 04/18/25 Dental Screening Dental Screen Date: 04/18/25 Did you have a dental visit in the last 12 months?: Yes Did you have a dental problem in the last 6 months where you did not have access to dental care?: No Was dental information given to patient?: Patient has dentist HPI tingling and burning sensation b/l hands and feet HPI Details 39-year-old female with past medical history the migraine last seen 06/2024 coming in for acute problem. In review of the notes, patient was seen in walk-in clinic 04/10/2025 for numbness and tingling in the hands and feet advised to follow up with PCP. Presenting with tingling in her fingers and feet, accompanied by dizziness. The tingling sensation occurred last week while she was working and lasted for approximately 3 to 4 minutes before resolving spontaneously. She reported no associated pain in the feet or hands and did not experience any tripping sensation. The patient experienced a sensation of heat in her body during the episode. She reported drinking 2 to 4 bottles of water per day and experienced slight dizziness during the episode. The episode occurred while she was walking and entering a room, where she initially felt hot. The patient has a history of starting a new job, which may have contributed to stress-related symptoms. She denied any facial droop, vision changes, difficulty talking, or weakness. Since this 1 episode she has not had any recurrence. [facility] Medical History Right-sided low back pain with sciatica Headache Surgical History History of tubal ligation Family History Father No problems noted. Mother Hypertension Diabetes Maternal Grandmother Diabetes Hypertension Social History Housing: Apartment Alcohol intake: never Patient Tobacco Use Status: Never used Tobacco e-Cigarette/Vaping Use: Never Used Second Hand Smoke Exposure: No service: No Current occupational status: employed Current occupational exposures/hazards: No Cognitive needs: No Hearing needs: No Vision needs: Yes Questionnaire PHQ-9 Over the last 2 weeks, how often have you been bothered by any of the following problems? 1. Little interest or pleasure in doing things: not at all 2. Feeling down, depressed, or hopeless: not at all 3. Trouble falling or staying asleep, or sleeping too much: not at all 4. Feeling tired or having little energy: not at all 5. Poor appetite or overeating: not at all 6. Feeling bad about yourself - or that you are a failure or have let yourself or your family down: not at all 7. Trouble concentrating on things, such as reading the newspaper or watching television: not at all 8. Moving or speaking so slowly that other people could have noticed. Or the opposite - being so fidgety or restless that you have been moving around a lot more than usual: not at all 9. Thoughts that you would be better off or of hurting yourself in some way: not at all Total score: 0 Depression Screening Interpretation: Negative Depression Screening Done: Yes Source: Developed by Drs. Dann Wagner, Nikko Whitney and colleagues, with an educational dagmar from [employer]. Thrive Questionnaire Date Thrive assessed: 04/16/25 I am a: Patient What is your living situation today?: I have a steady place to live Within the past 12 months, did the food you bought not last and you didn't have the money to get more?: Never true Within the past 12 months, did you worry whether your food would run out before you got money to buy more?: Never true Do you have trouble paying for medicines?: No Do you have trouble getting transportation to medical appointments?: No Do you have trouble paying your heating and electricity bill?: No Do you have trouble taking care of your child, family member or friend?: No Do you have trouble with day-to-day activities such as bathing, preparing meals, shopping, managing finances, etc.?: No Are you currently unemployed and looking for a job?: No Are you interested in more education?: Yes Please select the resources that you would like help with: None Currently or been in a relationship where the following occur: No concerns reported THRIVE Score: 0 AUDIT C Alcohol Use Questionnaire (AUDIT-C) 1. How often do you have a drink containing alcohol?: Never 3. How often do you have six or more drinks on one occasion?: Never Total Score: 0 ABDI-7 AMB Questionnaire ABDI-7 Date ABDI - 7 assessed: 04/18/25 Feeling nervous, anxious, or on edge: 0 = Not at all Not being able to stop or control worryin = Not at all Worrying too much about different things: 0 = Not at all Trouble relaxin = Not at all Being so restless that it is hard to sit still: 0 = Not at all Becoming easily annoyed or irritable: 0 = Not at all Feeling afraid as if something awful might happen: 0 = Not at all Total ABDI-7 score (0-4 normal; 5-9 mild; 10-14 moderate; 15-21 severe): 0 Source: Developed by Drs. Dann Wagner, Nikko Whitney and colleagues, with an educational dagmar from [employer]. Review of Systems Const Denies body aches, Denies chills, Denies fever(s), Denies headache(s) and Denies poor appetite Eyes Reports no additional complaints ENT Denies dizziness and Denies headache(s) Card Denies chest pain, Denies syncope, Denies edema, Denies irregular heart rhythm, Denies lightheadedness and Denies dyspnea Resp Denies cough and Denies dyspnea GI Denies nausea and Denies vomiting Reports no additional complaints Musc Reports no additional complaints and Denies abnormal gait Skin/Breast Reports system reviewed and no additional complaints, except as documented Neuro Denies abnormal gait, Denies dizziness, Denies syncope and Denies headache(s) Psych Reports no additional complaints Physical exam (Primary Care) Vital Signs: Last Vital Signs Temp 97.1 F 04/18/25 08:21 Pulse 69 04/18/25 08:21 BP 120/64 04/18/25 08:21 Pulse Ox 99 04/18/25 08:21 Oxygen Delivery Method Room Air 04/18/25 08:21 BMI result Body Mass Index 28.8 Tobacco/Smoking Status: Tobacco use Status Tobacco use date assessed 04/18/25 04/18/25 08:23 Patient Tobacco Use Status Never used Tobacco 04/18/25 08:23 e-Cigarette/Vaping Use Never Used 04/18/25 08:23 PHQ-9: PHQ-9 Score PHQ-9: Total score 0 04/18/25 08:23 Depression Screening Interpretation: Negative Thrive Assessment: Date of Thrive Assessment Date Thrive assessed 04/16/25 04/18/25 08:23 Currently or been in a relationship where the following occur: No concerns reported Const General: cooperative, healthy appearing, comfortable and no acute distress Orientation/consciousness: patient oriented x3 HENOK Head: Yes normocephalic Ears: hearing grossly normal bilaterally General nose exam: Normal external nose present Eyes General: appearance normal, both eyes and all related structures Conjunctivae: conjunctivae normal Pupils: Equal, round and reactive pupils present Neck Neck: Yes full ROM and Yes no lymphadenopathy Resp Effort & Inspection: normal respiratory effort Auscultation: clear to auscultation bilaterally, no crackles, no rales, no rhonchi and no wheezes Cardio Rate: regular rate Rhythm: regular rhythm Skin General skin exam: no rashes or lesions noted Neuro General: patient oriented x3 and gait normal Cranial nerves: Yes CN's II-XII intact bilaterally, Yes Facial sensation intact/muscles of mastication intact, Yes Equal, round and reactive pupils present, Yes Normal accommodation reflex present, Yes Bilaterally intact EOM present, Yes Normal facial strength present, Yes Ability to bilaterally rotate head present and Yes Ability to bilaterally elevate shoulders present Cognition (Neuro): normal cognition Gait exam (Neuro): Normal gait present Motor exam (neuro): 5/5 motor strength present throughout and Pronator motor function not present Extrem General: Yes normal to inspection, Yes full ROM and No edema Psych Affect: normal affect Attitude: cooperative Insight: Good insight present (Psych) Judgement: Good judgement present (Psych) Coding Level of Care Code Est Pt Level 3 (77341) Diagnoses Transient paresthesia R20.2 Assessment & Plan Assessment & Plan (1) Transient paresthesia: Comment: Patient is neurologically intact and vital signs are stable. Symptoms have not recurred. Patient is encouraged to follow up with her [facility] care provider for routine laboratories if her symptoms recur. Code(s): R20.2 - Paresthesia of skin Category: Medical Plan: The patient will undergo blood work to assess for potential vitamin deficiencies and to complete a cholesterol panel as part of her preventative care. It is recommended that she increase her water intake to 4 to 5 bottles per day. She should monitor her symptoms, particularly the tingling and dizziness, and report any recurrence or worsening. If symptoms persist, further evaluation may be necessary to rule out other causes such as perimenopausal symptoms or stress-related factors. No focal neurological deficit or weakness on exam The patient is advised to manage stress levels, particularly in light of her new job, and to ensure adequate hydration and nutrition. Follow-up is scheduled for June for her annual examination, where her symptoms will be reassessed. In the meantime, she should seek medical attention if she experiences any new or concerning symptoms. Plan This note was constructed using voice recognition software. While every effort has been made to ensure accuracy and asphalt distributor operator, still areas may have been included sometimes these areas may affect the content or meeting of the given symptoms. Total time spent caring for the patient today was 20 minutes. This includes time spent before the visit reviewing the chart, time spent during the visit, and time spent after the visit and documentation. Patient was informed and verbally consented to the use of an ambient scribe for clinic note documentation during this visit. Orders: Orders Vitamin D 25-OH Total Today R20.2 - Paresthesia of skin, Z13.21 - Encounter for screening for nutritional disorder Lipid Panel Today Z13.220 - Encounter for screening for lipoid disorders Complete Blood Count Auto Diff Today R20.2 - Paresthesia of skin Comprehensive Met. Panel Today E66.3 - Overweight, G43.909 - Migraine, unspecified, not intractable, without status migrainosus, R20.2 - Paresthesia of skin TSH reflex Free T4 Today R20.2 - Paresthesia of skin Vitamin B12 and Folate Today R20.2 - Paresthesia of skin, Z13.21 - Encounter for screening for nutritional disorder
[2025-04-18 08:21] VITALS: BP 120/64; PULSE 69; TEMP 36.2; O2SAT 99; BMI 28.8
== END 2025-04-18 09:02 | disposition home or self-care (01) ==
LOC: HO.HMCH 08:04
PROVIDERS: PCP Internal Medicine
DX: R20.2 Paresthesia of skin (principal)

== ENCOUNTER → 2025-04-18 08:03 | Outpatient (BNVA) | payer OTHER, SELFPAY | PROVIDERS: PCP Internal Medicine | DX: R20.2 Paresthesia of skin (principal); R42 Dizziness and giddiness; G43.909 Migraine, unspecified, not intractable, without status migrainosus; E66.3 Overweight; Z68.28 Body mass index [BMI] 28.0-28.9, adult | CPT/HCPCS: 99212 ==

== ENCOUNTER 2025-06-19 08:00 | Outpatient (REF) | payer OTHER, SELFPAY ==
[2025-06-19 08:15] LABS: MANUAL DIFF FLAG NO
[2025-06-19 08:32] LABS: Hematocrit 36.8 % (37.0-47.0); Hemoglobin 11.6 g/dl (12.0-16.0); Imm Gran Abs Auto 0.02 X10*3/uL (0.00-0.03); Imm Gran Pct Auto 0.3 % (0.0-0.4); Lymphocytes Absolute Auto 2.2 X10*3/uL (1.2-4.9); Mean Corpuscular HGB Conc 31.5 g/dl (31.0-35.0); Mean Corpuscular Hemoglobin 24.8 pg (27.0-33.0); Mean Corpuscular Volume 78.6 fL (80.0-98.0); NRBC Abs Auto 0.000 X10*3/uL (0.0-0.012); NRBC Pct Auto 0.0 /100WBC (0.0-0.2); Platelet Count 253 X10*3/uL (160-400); Red Blood Count 4.68 X10*6/uL (4.20-5.50); White Blood Count 5.9 X10*3/uL (4.8-10.8)
[2025-06-19 09:18] LABS: Alanine Aminotransferase 16 U/L (0-31); Albumin Level 4.1 g/dL (3.5-5.0); Alkaline Phosphatase 67 U/L (39-117); Anion Gap 9 (12-20); Aspartate Amino Transferase 16 U/L (5-31); Blood Urea Nitrogen 15 mg/dL (9-16); Calcium 8.5 mg/dL (8.4-10.2); Carbon Dioxide 27 mmol/L (22-29); Chloride 108 mmol/L (96-108); Cholesterol 173 mg/dL (<200); Estimated Glomerular Filt Rate > 60; HDL Cholesterol 41 mg/dL (>40); Potassium 3.9 mmol/L (3.3-5.1); Sodium 140 mmol/L (135-145); Total Protein 7.1 g/dL (6.5-8.0); Triglycerides 73 mg/dL (<150)
[2025-06-19 09:43] LABS: Folate 7.9 ng/mL (> or = 4.0); Vitamin B12 1032 pg/mL (200-900)
== END 2025-06-19 08:01 | disposition home or self-care (01) ==
LOC: HO.LAB 08:00
DX: G43.909 Migraine, unspecified, not intractable, without status migrainosus (principal); E66.3 Overweight; R20.2 Paresthesia of skin; Z13.21 Encounter for screening for nutritional disorder; Z13.220 Encounter for screening for lipoid disorders
CPT/HCPCS: 36415; 80053; 80061; 82306; 82607; 82746; 84443; 85025

== ENCOUNTER 2025-06-21 12:53 | Outpatient (AMB) | payer OTHER, SELFPAY ==
--- NOTE | 2025-06-21 13:13 | A.OFFPC_ITS ---
Vital Signs 06/21/25 13:15 Height 5 ft 2 in Weight 154 lb 4 oz BMI 28.2 BP 132/68 Blood Pressure Location Lt brachial Position Sitting Pulse 77 Pulse Source Pulse Oximeter Temp 97.3 F Temp Source Temporal Artery Scan Pulse Oximetry (%) 98 Oxygen Delivery Method Room Air Intake Visit Reasons: annual exam Intake Note: Patient is here today for a physical. Production Controller Required: No Press Hand Supervisor: Not Required per policy Accompanied by: Self / Same As Patient Allergies seafood Allergy (Intermediate, Verified 06/21/25 13:14) throat Medication List - Last Reconciled 06/21/25 by Ari Singh MD acetaminophen 1,000 mg (2 x 500 mg) PO Q6H PRN nzsbwxd-cvrgfywhhayrp-eweiherp 250-250-65 mg (Excedrin Extra Strength) 1 tab PO Q4-6H PRN cholecalciferol (vitamin D3) 25 mcg PO DAILY cyanocobalamin (vitamin B-12) 1,000 mcg IM QMONTH epinephrine (EpiPen) 0.3 mg (0.3 mL) IM Q4H PRN pyridoxine (vitamin B6) 10 mg PO DAILY Tobacco use date assessed: 06/21/25 Dental Screening Dental Screen Date: 04/18/25 HPI annual exam HPI Details LMP may [facility] Medical History Right-sided low back pain with sciatica Headache Surgical History History of tubal ligation Family History Father No problems noted. Mother Hypertension Diabetes Maternal Grandmother Diabetes Hypertension Social History Housing: Apartment Alcohol intake: never Patient Tobacco Use Status: Never used Tobacco e-Cigarette/Vaping Use: Never Used Second Hand Smoke Exposure: No service: No Current occupational status: employed Current occupational exposures/hazards: No Cognitive needs: No Hearing needs: No Vision needs: Yes (Glasses) Questionnaire Thrive Questionnaire Date Thrive assessed: 04/16/25 I am a: Patient What is your living situation today?: I have a steady place to live Within the past 12 months, did the food you bought not last and you didn't have the money to get more?: Never true Within the past 12 months, did you worry whether your food would run out before you got money to buy more?: Never true Do you have trouble paying for medicines?: No Do you have trouble getting transportation to medical appointments?: No Do you have trouble paying your heating and electricity bill?: No Do you have trouble taking care of your child, family member or friend?: No Do you have trouble with day-to-day activities such as bathing, preparing meals, shopping, managing finances, etc.?: No Are you currently unemployed and looking for a job?: No Are you interested in more education?: Yes Please select the resources that you would like help with: None Currently or been in a relationship where the following occur: No concerns reported THRIVE Score: 0 AUDIT C Alcohol Use Questionnaire (AUDIT-C) 2. How many drinks containing alcohol do you have on a typical day when you are drinking?: 1 or 2 Total Score: 0 ABDI-7 AMB Questionnaire ABDI-7 Date ABDI - 7 assessed: 04/18/25 Source: Developed by Drs. Dann Wagner, Diane Mahan, Nikko Wilson and colleagues, with an educational dagmar from [employer]. Review of Systems Const Denies poor appetite and Denies weakness Eyes Denies no additional complaints ENT Reports Normal hearing present, Denies dizziness, Denies nasal congestion, Denies tinnitus and Denies sore throat Card Denies chest pain, Denies syncope, Denies rapid heart rate and Denies dyspnea Resp Denies cough and Denies dyspnea GI Denies change in stool character, Reports constipation, Denies diarrhea, Denies nausea and Denies vomiting Denies urinary frequency, Denies difficulty voiding and Denies dysuria Neuro Reports Normal hearing present, Denies confusion, Denies dizziness, Denies syncope and Denies weakness Psych Denies confusion Physical exam (Primary Care) Vital Signs: Last Vital Signs Temp 97.3 F 06/21/25 13:15 Pulse 77 06/21/25 13:15 BP 132/68 06/21/25 13:15 Pulse Ox 98 06/21/25 13:15 Oxygen Delivery Method Room Air 06/21/25 13:15 BMI result Body Mass Index 28.2 Tobacco/Smoking Status: Tobacco use Status Tobacco use date assessed 06/21/25 06/21/25 13:20 Patient Tobacco Use Status Never used Tobacco 06/21/25 13:20 e-Cigarette/Vaping Use Never Used 06/21/25 13:20 Thrive Assessment: Date of Thrive Assessment Date Thrive assessed 04/16/25 06/21/25 13:20 Currently or been in a relationship where the following occur: No concerns reported Const General: No confusion Orientation/consciousness: No confusion HENMT Head: Yes normocephalic Ears: external ears normal and TM's normal bilaterally Face and sinus: Yes normal facial exam Mouth: moist mucous membranes Throat: Yes tonsils normal Eyes Conjunctivae: conjunctivae normal Pupils: Equal, round and reactive pupils present and Pupil accommodation reflex normal Direct Ophthalmoscopy: normal light reflex Neck Neck: No lymphadenopathy Thyroid: Thyroid normal Chest Chest palpation & inspection: normal inspection of the chest Resp Effort & Inspection: normal respiratory effort and no audible wheezes Auscultation: clear to auscultation bilaterally, no crackles, no wheezes and lung sounds not diminished Cardio Rate: regular rate Rhythm: regular rhythm Peripheral pulses: radial pulses present and dorsalis pedis present GI Palpation (GI): no masses Auscultation: normal bowel sounds and normoactive bowel sounds Rectal Exam - Female: deferred Skin General skin exam: no rashes or lesions noted Rashes: no rashes Neuro General: No confusion Cranial nerves: Yes Equal, round and reactive pupils present and Yes Normal hearing present Cognition (Neuro): normal cognition Gait exam (Neuro): Normal gait present Motor exam (neuro): 5/5 motor strength present throughout Deep tendon reflexes (DTR's): Right brachioradialis reflex intensity grade: 2+, Left brachioradialis reflex intensity grade: 2+, Right patellar reflex intensity grade: 2+ and Left patellar reflex intensity grade: 2+ Extrem General: No edema Coding Level of Care Code Est Pt Prev Care 40-64y(86747) Diagnoses Annual physical exam Z00.00 Anemia D64.9 Migraine G43.909 Assessment & Plan Assessment & Plan (1) Annual physical exam: Code(s): Z00.00 - Encounter for general adult medical examination without abnormal findings Category: Medical Plan: Patient is advised to eat healthy, keep well hydrated, keep active and have adequate sleep. (2) Anemia: Code(s): D64.9 - Anemia, unspecified Category: Medical Plan: Advised to do a follow-up with iron testing (3) Migraine: Code(s): G43.909 - Migraine, unspecified, not intractable, without status migrainosus Category: Medical Plan: Patient is advised to eat healthy, keep well hydrated, keep active and have adequate sleep. Plan History of Present Illness The patient is a 39-year-old female presenting for an annual physical examination. The patient has a history of back pain and migraines, which have been ongoing concerns. She also has hypercholesterolemia, which has been managed with lifestyle modifications. In April 2025, the patient was seen for paresthesias, and blood work was requested at that time. The blood work conducted on June 19, 2025, revealed mild microcytic anemia with hemoglobin at 11.6 g/dL and hematocrit at 36.8%. Electrolytes, renal function, liver function, and cholesterol levels were within normal limits. The patient reports heavy menstrual bleeding, which has been occurring for the past six months. This bleeding is suspected to be contributing to her anemia. The patient is currently taking vitamin D, vitamin B12 injections monthly, and vitamin B6 for migraines. She denies any medication allergies and reports no recent episodes of dizziness, nausea, or vomiting. Health Maintenance - Vaccinations: Flu shot received three weeks ago, tetanus shot up to date - Preventative care: Mammogram up to date - Lifestyle: Advised to maintain a diet high in iron-rich vegetables and nuts, avoid excessive meat consumption Social History - Nutritional intake: Consumes three to four bottles of water daily, approximately 16 ounces each Review of Systems - General: Denies dizziness, nausea, vomiting, fever - Cardiovascular: Denies chest pain, shortness of breath, palpitations - Gastrointestinal: Denies constipation, diarrhea, abdominal pain - Neurological: Reports tingling sensation in feet, denies headaches, dizziness - Musculoskeletal: Denies joint pain, muscle weakness Physical Exam General: Cooperative, healthy appearing, comfortable, no acute distress and well developed Orientation: Patient oriented x3 Limitations: No limitations Head: Normal to inspection Ears: Hearing grossly normal bilaterally Nose: Normal external nose present Face and sinus: Normal facial exam Eyes: Appearance normal, both eyes and all related structures Neck: Normal visual inspection and Yes full ROM Respiratory: Normal respiratory effort and able to speak in complete sentences. Clear to auscultation bilaterally Cardiovascular: Regular rate and rhythm. Normal S1 and S2 GI: Normal to inspection. Soft to palpation and nontender Skin: No rashes or lesions noted Neuro: Patient oriented x3 Extremities: Normal to inspection Results - Labs: Hemoglobin 11.6 g/dL, Hematocrit 36.8%, microcytic anemia noted - Labs: Electrolytes, renal function, liver function, cholesterol levels within normal limits - Labs: Vitamin B12 level 1032, Vitamin D and folic acid adequate Plan Patient was informed and verbally consented to the use of an ambient scribe for clinic note documentation during this visit. 1. Microcytic Anemia The patient has been advised to follow up with iron testing to determine if iron deficiency is contributing to her microcytic anemia. In the meantime, she is encouraged to consume a diet rich in iron, focusing on vegetables and nuts rather than meat to avoid increasing cholesterol levels. 2. Heavy Menstrual Bleeding The patient is experiencing heavy menstrual bleeding, which is suspected to be contributing to her anemia. She is scheduled to see a convention planner in August to address this issue and explore potential hormonal treatments. 3. Paresthesias The patient reported paresthesias in her feet, which may be related to her anemia. Further evaluation and management will depend on the results of the follow-up iron testing. Discussion Notes During the visit, I discussed with the patient the importance of following up with iron testing to evaluate her microcytic anemia and the potential link to her heavy menstrual bleeding. We also talked about dietary modifications to increase iron intake through vegetables and nuts while avoiding excessive meat consumption to manage cholesterol levels. The patient is scheduled to see a convention planner in August to address her heavy menstrual bleeding and explore hormonal treatment options. Patient Instructions - Follow up with iron testing as advised. - Maintain a diet high in iron-rich vegetables and nuts, and limit meat consumption. - Attend the scheduled gynecology appointment in August. - Monitor for any changes in symptoms and report them promptly. Orders: Orders IRON PROFILE Today D64.9 - Anemia, unspecified Complete Blood Count Auto Diff Today D64.9 - Anemia, unspecified Ferritin Today D64.9 - Anemia, unspecified Reticulocyte Count Today D64.9 - Anemia, unspecified
[2025-06-21 13:15] VITALS: BP 132/68; PULSE 77; TEMP 36.3; O2SAT 98; BMI 28.2
== END 2025-06-21 13:53 | disposition home or self-care (01) ==
LOC: HO.HMCH 12:54
PROVIDERS: PCP Internal Medicine; Visit Provider Internal Medicine
DX: Z00.00 Encounter for general adult medical examination without abnormal findings (principal); D64.9 Anemia, unspecified; G43.909 Migraine, unspecified, not intractable, without status migrainosus

== ENCOUNTER 2025-08-26 09:28 | Outpatient (AMB) | payer OTHER, SELFPAY ==
[2025-08-26 09:56] VITALS: BP 106/72; PULSE 84; TEMP 36.8; O2SAT 97; BMI 27.4
--- NOTE | 2025-08-26 09:56 | AM.OFFWIN_ITS ---
Intake Vital Signs 08/26/25 09:56 Height 5 ft 2 in Weight 150 lb BMI 27.4 BP 106/72 Blood Pressure Location Rt brachial Position Sitting Pulse 84 Pulse Source Pulse Oximeter Temp 98.3 F Temp Source Oral Pulse Oximetry (%) 97 Oxygen Delivery Method Room Air Intake Visit Reasons: EP-sore throat, cough, headaches Intake Note: pt presents with sore throat, bilateral ears feels clogged, headaches and mostly dry coughing x2 days Patient Tobacco Use Status: Never used Tobacco Allergies seafood Allergy (Intermediate, Verified 08/26/25 10:01) throat Medication List - Last Reconciled 08/26/25 by Neva Hale NP acetaminophen 1,000 mg (2 x 500 mg) PO Q6H PRN whpzmsy-ekmkrgspljtac-fuclioxh 250-250-65 mg (Excedrin Extra Strength) 1 tab PO Q4-6H PRN benzonatate 200 mg (2 x 100 mg) PO BID cholecalciferol (vitamin D3) 25 mcg PO DAILY cyanocobalamin (vitamin B-12) 1,000 mcg IM QMONTH epinephrine (EpiPen) 0.3 mg (0.3 mL) IM Q4H PRN pyridoxine (vitamin B6) 10 mg PO DAILY Do you need a note to return to daycare/school/sports/work: No HPI HPI Comments History of Present Illness Details 39-year-old female presents to the walk- in clinic with complaints of sore throat, bilateral ear pressure with a clogged sensation, headaches, and dry cough for the past 2 days. Patient reports fevers at home up to approximately 100?F and states she has been taking Ibuprofen with good symptom relief. Denies nausea or vomiting. Denies recent sick contacts. [facility] Medical History (Updated 08/26/25 @ 10:55 by Neva Hale NP) Acute respiratory disease Right-sided low back pain with sciatica Headache Surgical History History of tubal ligation Family History Father No problems noted. Mother Hypertension Diabetes Maternal Grandmother Diabetes Hypertension Social History Housing: Apartment Alcohol intake: never Patient Tobacco Use Status: Never used Tobacco e-Cigarette/Vaping Use: Never Used Second Hand Smoke Exposure: No service: No Current occupational status: employed Current occupational exposures/hazards: No Cognitive needs: No Hearing needs: No Vision needs: Yes (Glasses) Physical Exam Vital Signs: Last Vital Signs Temp 98.3 F 08/26/25 09:56 Pulse 84 08/26/25 09:56 BP 106/72 08/26/25 09:56 Pulse Ox 97 08/26/25 09:56 Oxygen Delivery Method Room Air 08/26/25 09:56 BMI result Body Mass Index 27.4 Const General: no acute distress Nutritional Appearance: well nourished Orientation/consciousness: patient oriented x3 HEENT Head: Yes normocephalic Ears: external ears normal and TM abnormal bulging bilateral and with fluid behind the TM bilateral General nose exam: Normal external nose present and Abnormal mucous membranes and turbinates present pale Face and sinus: Yes sinuses nontender Mouth: moist mucous membranes Throat: Yes uvula midline, Yes abnormal tonsil (Enlarged +1) and Yes postnasal drainage Resp Effort & Inspection: normal respiratory effort, able to speak in complete sentences, no audible wheezes and no cough Auscultation: clear to auscultation bilaterally, no crackles, no rales, no rhonchi and no wheezes Cardio Heart sounds: S1 normal heart sound present and S2 normal heart sound present Neuro General: patient oriented x3 Results AMB Rapid Strep AMB Rapid Strep Negative Last Edit by Sravani Lincoln CMA on 08/26/25 10:3 6 Results Reviewed Results Reviewed: Laboratory Last Values Strep Scn Rapid Clinic Negative 08/26/25 10:34 Assessment & Plan Assessment & Plan (1) Acute respiratory disease: Code(s): J06.9 - Acute upper respiratory infection, unspecified Plan: Acute upper respiratory infection (likely viral) Pharyngitis, viral etiology. Reassurance provided; symptoms consistent with viral illness Supportive care recommended: Continue Ibuprofen or Acetaminophen as needed for fever and pain Increase oral fluids and rest Warm saltwater gargles for sore throat OTC antihistamine and/or intranasal saline spray for congestion and ear pressure OTC cough suppressant as needed Educated patient on red flag symptoms: persistent fever >3?5 days, worsening sore throat, difficulty swallowing, shortness of breath, or ear pain. Rapid Strep Negative. Ordered SARs. Orders: Orders AMB Rapid Strep Screen Today Z13.9 - Encounter for screening, unspecified SARS-CoV2/FLU/RSV Today R09.89 - Other specified symptoms and signs involving the circulatory and respiratory systems Medications: New benzonatate 200 mg (2 x 100 mg) PO BID 90 caps 0RF J06.9 - Acute upper respiratory infection, unspecified pseudoephedrine HCl ER (Sudafed 12 Hour) 120 mg PO Q12H 20 tabs 0RF J06.9 - Acute upper respiratory infection, unspecified Coding Level of Care Code Est Pt Level 4 (46354) Diagnoses Acute respiratory disease J06.9 Time Spent (min) 20
== END 2025-08-26 10:41 | disposition home or self-care (01) ==
PROVIDERS: PCP Internal Medicine; Visit Provider Nurse Practitioner Family
DX: J06.9 Acute upper respiratory infection, unspecified (principal); Z13.9 Encounter for screening, unspecified

== ENCOUNTER 2025-08-26 09:28 | Outpatient (REF) | payer OTHER, SELFPAY ==
[2025-08-26 14:48] LABS: Resp Syncy Virus RNA Qual PCR NEGATIVE (Negative); SARS COV2 PCR INHOUSE NEGATIVE (Negative)
== END 2025-08-26 09:29 | disposition home or self-care (01) ==
LOC: HO.LNP 09:28
PROVIDERS: Nurse Practitioner Family; PCP Internal Medicine
DX: R09.89 Other specified symptoms and signs involving the circulatory and respiratory systems (principal); J06.9 Acute upper respiratory infection, unspecified; Z13.89 Encounter for screening for other disorder; Z79.1 Long term (current) use of non-steroidal anti-inflammatories (NSAID)
CPT/HCPCS: 87637; 87880